=== PATIENT | female | born 1950 | race Caucasian/White ===

== ENCOUNTER → 2017-05-23 | Outpatient (CLI) | payer MEDICARE, OTHER ==
[~2017-05-23] MED LIST: ACET-1966 PO; ACYC800T99 PO; ALPR-429 PO; AMOX-559 PO; CEPH-13 PO; CHOL378P8 PO; CLAR-1 PO; CLAR-13 PO; CYCL-277 PO; FLU150 PO; FLUC150T40 PO; FLUT16SP19 NS; HYDR-4309 PO; INF100I IV; LACT1CAP74 PO; MECL12.5 PO; METH4TAB66 PO; METR-1 PO; METR-159 PO; METR-160 PO; MULT-820 PO; NITR-105 PO; OXYC-373 PO; POTA20PA25 PO; POTA20TA85 PO; PRED-1 PO; PROM-110 PO; PSYL660P5 PO; Return to work; SOLI5TAB PO; SULF-198 PO; USTE45DI2 SQ; VALA100059 PO
== END ==
LOC: LAB 09:16
PROVIDERS: ATTEND Nurse Practitioner Primary Care
DX: M54.9 Dorsalgia, unspecified (principal); R82.99 Other abnormal findings in urine; B96.89 Other specified bacterial agents as the cause of diseases classified elsewhere
CPT/HCPCS: 81001; 87077; 87088; 87186

== ENCOUNTER → 2017-08-06 | Outpatient (CLI) | payer MEDICARE, OTHER ==
[~2017-08-06] MED LIST changes: +LISI5TAB25 PO
--- NOTE | 2017-08-06 21:14 | RADIOLOGY IMAGING REPORT ---
[place] [facility] [place] NAME: ANTONIO BULLARD : [id number] MR: [id number] V: [id number] EXAM DATE: [id number] ORDERING PHYSICIAN: SAKINA STEPHEN TECHNOLOGIST: Gaye Barrow PROCEDURE: STRESS ECHOCARDIOGRAPHY COMPARISON: None. INDICATIONS: Palpitations, new onset high BP FINDINGS: After informed consent the patient was exercised using the Justus protocol. She was able to complete the end of Stage 1 of the Justus protocol at which time she achieved 4.6 Mets & 107% of the predicted maximum heart rate. She had no complaints of any chest pains or chest pressures or any shortness of breath. There was an occasional PAC noted. Baseline EKG showed normal sinus rhythm. There was an increased blood pressure. With exercise there were no ST segment changes of ischemia & no increase in the arrhythmias. ECHOCARDIOGRAPH PORTION OF THE STRESS TEST: At rest the patient had normal left ventricular systolic function with estimated ejection fraction of 70%. There is a trace of mitral, tricuspid, aortic & pulmonic insufficiency with mild prolapse of the posterior leaflet of the mitral valve. There was a Grade 1/4 decrease in diastolic function. With exercise the patient had normal hyperdynamic response to exercise with no left ventricular segmental wall motion abnormalities. CONCLUSION: 1. Normal stress echocardiograph with normal LV function systolically at rest with hyperdynamic response to exercise & low probability of ischemia. 2. Normal ejection fraction of 70% with a Grade 1/4 decrease in diastolic function. 3. A trace of mitral, tricuspid, aortic & pulmonic insufficiency with normal right ventricular systolic pressures of 27mm Hg. There is mild prolapse of the posterior leaflet of the mitral valve. Low probability of ischemia. Patient had an increased blood pressure response & poor exercise tolerance. Dictated by: Deanne Valles M.D. on 08/06/2017 at 9:31 Transcribed by: MONICA on 08/06/2017 at 11:13 Approved by: Deanne Valles M.D. on 08/06/2017 at 21:12 [facility]
--- NOTE | 2017-08-08 20:56 | RT STRESS TEST REPORT ---
FACILITY: [facility] PATIENT NAME: ANTONIO BULLARD : [id number] MR: [id number] V: [id number] EXAM DATE: ORDERING PHYSICIAN: SAKINA IQBAL TECHNOLOGIST: Robin Acquisition Time: 2017-08-06 07:11:21 Total Exercise Time: 00:03:00 Test Indications: Palpitations Medications: Lisinporil Stelera Protocol: COMLY/RYAN Max HR: 166 BPM 107% of Pred: 154 BPM Max BP: 182/096 mmHG Max Work Load: 4.6 METS see echo report Confirmed by CAMERON WOOTEN ([id number]) on 08/08/2017 8:54:44 PM Referred By: Sakina Iqbal Overread By: CAMERON WOOTEN
== END ==
LOC: RAD 04:23
PROVIDERS: ATTEND Nurse Practitioner Primary Care
DX: I34.0 Nonrheumatic mitral (valve) insufficiency (principal); I07.1 Rheumatic tricuspid insufficiency; I35.1 Nonrheumatic aortic (valve) insufficiency; I37.1 Nonrheumatic pulmonary valve insufficiency; I50.30 Unspecified diastolic (congestive) heart failure; I34.1 Nonrheumatic mitral (valve) prolapse
CPT/HCPCS: 93017; 93325; 93350

== ENCOUNTER → 2017-08-10 | Outpatient (CLI) | payer MEDICARE, OTHER ==
[~2017-08-10] MED LIST changes: +LEVA15HF IH; +PRED20TA6 PO
--- NOTE | 2017-08-10 16:35 | RADIOLOGY IMAGING REPORT ---
FACILITY: [facility] - [place] PATIENT NAME: Kerry Bryant : 1950 MR: [id number] V: [id number] EXAM DATE: ORDERING PHYSICIAN: SAKINA STEPHEN TECHNOLOGIST: Location: [facility] - [place], [place] Patient: Kerry Bryant : 1950 Visit/Account:[id number] Date of Sevice: 08/10/2017 2 VIEWS CHEST INDICATION: Shortness of breath. COMPARISON: 06/28/2016. FINDINGS: Cardiomediastinal silhouette and pulmonary vessels within normal limits. There is no focal infiltrate or lobar consolidation. There is no pneumothorax or pleural effusion. No nodule. Upper abdomen is unremarkable. No acute bony abnormality. Stable scoliotic curvature to the spine. IMPRESSION: 1. No acute cardiopulmonary process. Report Dictated By: Mil Corea at 08/10/2017 4:31 PM Report E-Signed By: Mil Corea at 08/10/2017 4:32 PM WSN:[id number]
== END ==
LOC: RAD 15:55
PROVIDERS: ATTEND Nurse Practitioner Primary Care
DX: R06.02 Shortness of breath (principal)
CPT/HCPCS: 71046

== ENCOUNTER → 2017-09-12 | Outpatient (CLI) | payer MEDICARE, OTHER ==
[~2017-09-12] MED LIST changes: +OXYB5TAB86 PO; +POTA8TAB45 PO; +SOLI10TA8 PO
== END ==
LOC: LAB 09:23
PROVIDERS: ATTEND Nurse Practitioner Primary Care
DX: E87.6 Hypokalemia (principal)
CPT/HCPCS: 36415; 82040; 82247; 82310; 82374; 82435; 82565; 82947; 84075; 84132; 84155; 84295; 84450; 84460; 84520

== ENCOUNTER → 2018-08-30 | Outpatient (CLI) | payer MEDICARE, OTHER ==
[~2018-08-30] MED LIST changes: +CEF300 PO; -HYDR-4309 PO; +HYDR-653 PO; +LISI2.5T60 PO; -METR-159 PO; -METR-160 PO; +METR250T8 PO; +METR500T15 PO
== END ==
LOC: LAB 14:28
PROVIDERS: ATTEND Otolaryngology
DX: J30.9 Allergic rhinitis, unspecified (principal)
CPT/HCPCS: 36415; 86003